=== PATIENT | female | born 1940 | race Caucasian/White ===

== ENCOUNTER 2017-09-05 11:36 | Emergency (ER) | payer MEDICARE ==
[~2017-09-05] VITALS: Ht 160 cm; Wt 55.0 kg
[2017-09-05 13:16] VITALS: BP 148/85
== END 2017-09-05 13:18 | disposition home or self-care (01) ==
LOC: ER 11:36
DX: S06.0X0A Concussion without loss of consciousness, initial encounter (principal); Z60.2 Problems related to living alone; W22.8XXA Striking against or struck by other objects, initial encounter; Y93.89 Activity, other specified; Y92.89 Other specified places as the place of occurrence of the external cause; Y99.8 Other external cause status
CPT/HCPCS: 99284

== ENCOUNTER 2021-10-17 13:20 | Emergency (ER) | payer MEDICARE ==
[~2021-10-17] VITALS: Ht 160 cm; Wt 58.0 kg
[2021-10-17 13:36] VITALS: BP 144/77
[2021-10-17 13:46] LABS: BASOPHILS # (AUTO) 0.1 X10'3 (0-0.2); BASOPHILS % (AUTO) 1.7 % (0-1); EOSINOPHILS # (AUTO) 0.3 X10'3 (0-0.9); EOSINOPHILS % (AUTO) 4.8 % (0-6); HEMATOCRIT 41.8 % (35.0-45.0); HEMOGLOBIN 13.9 g/dl (12.0-16.0); LYMPHOCYTES # (AUTO) 1.6 X10'3 (1.1-4.8); LYMPHOCYTES % (AUTO) 27.7 % (21-51); MEAN CORPUSCULAR HEMOGLOBIN 32.1 PG (27.0-31.0); MEAN CORPUSCULAR HGB CONC 33.2 g/dL (33.0-36.5); MEAN CORPUSCULAR VOLUME 96.7 FL (78-98); MONOCYTES # (AUTO) 0.6 X10'3 (0-0.9); MONOCYTES % (AUTO) 10.4 % (2-12); NEUTROPHILS # (AUTO) 3.3 X10'3 (1.8-7.7); NEUTROPHILS % (AUTO) 55.4 % (42-75); PLATELET COUNT 311 X10'3 (140-440); RED BLOOD COUNT 4.32 X10'6 (4.20-5.60); RED CELL DISTRIBUTION WIDTH 13.7 % (11.5-14.5)
[2021-10-17 14:00] LABS: ALANINE AMINOTRANSFERASE 94 U/L (12-78); ALBUMIN 3.7 G/DL (3.4-5.0); ALKALINE PHOSPHATASE 242 IU/L (46-116); ANION GAP 5 (8-16); ASPARTATE AMINO TRANSFERASE 54 U/L (10-37); BILIRUBIN,TOTAL 0.5 MG/DL (0.1-1.0); BLOOD UREA NITROGEN 16 MG/DL (7-18); BUN/CREATININE RATIO 16.2 (6.6-38.0); CALCIUM 9.1 MG/DL (8.5-10.1); CHLORIDE 103 MMOL/L (99-107); CREATININE 0.99 MG/DL (0.40-0.90); GLUCOSE 108 MG/DL (70-104); POTASSIUM 4.3 MMOL/L (3.5-5.1); SODIUM 135 MMOL/L (135-145); TOTAL CARBON DIOXIDE 27.2 MMOL/L (24-32); TOTAL PROTEIN 7.5 G/DL (6.4-8.2); eGFR 54 ML/MIN
== END 2021-10-17 16:50 | disposition home or self-care (01) ==
LOC: ER 13:20
DX: R07.89 Other chest pain (principal); R53.1 Weakness; I25.10 Atherosclerotic heart disease of native coronary artery without angina pectoris; I25.2 Old myocardial infarction; Z88.2 Allergy status to sulfonamides
CPT/HCPCS: 36415; 71045; 80053; 83880; 84484; 85025; 93005; 99285

== ENCOUNTER 2022-05-26 11:04 | Emergency (ER) | payer MEDICARE ==
[~2022-05-26] VITALS: Ht 160 cm; Wt 57.3 kg
[2022-05-26 11:29] VITALS: BP 152/76
[2022-05-26 12:00] LABS: CLARITY,URINE SLIGHTLY CLOUDY (Clear); COLOR,URINE YELLOW (Yellow); GLUCOSE, URINE NEGATIVE (Neg); KETONES,URINE NEGATIVE (Neg); LEUKOCYTE ESTERASE ,URINE NEGATIVE (Neg); NITRITES, URINE NEGATIVE (Neg); OCCULT BLOOD,URINE NEGATIVE (Neg); PH,URINE 6.5 (4.8-8.0); PROTEIN,URINE NEGATIVE (Neg); UROBILINOGEN,URINE 0.2 E.U/dL (0.2-1.0)
[2022-05-26 12:03] LABS: UA COLLECTION TYPE CLN CATCH MIDSTREAM
[2022-05-26 12:09] LABS: BACTERIA,URINE FEW /HPF (Neg); RBC,URINE 0-2 /HPF (0-2); SQUAMOUS EPITHELIAL CELL,UR MODERATE /LPF (FEW); TRANSITIONAL EPI CELLS,URINE FEW /HPF; WBC,URINE 0-4 /HPF (0-4)
[2022-05-26] MEDS ORDERED: TRAM50TA2 PO (16:42)
== END 2022-05-26 16:55 | disposition home or self-care (01) ==
LOC: ER 11:05
DX: M54.50 Low back pain, unspecified (principal); S32.009S Unspecified fracture of unspecified lumbar vertebra, sequela; N13.30 Unspecified hydronephrosis; M81.0 Age-related osteoporosis without current pathological fracture; G89.29 Other chronic pain; Z88.2 Allergy status to sulfonamides; X58.XXXS Exposure to other specified factors, sequela
CPT/HCPCS: 72131; 81001; 99284

== ENCOUNTER 2024-09-25 08:18 | Day surgery (SDC) | payer MEDICARE, OTHER ==
[2024-09-18 15:23] LABS: BASOPHILS # (AUTO) 0.1 X10'3 (0-0.2); BASOPHILS % (AUTO) 1.3 % (0-1); EOSINOPHILS # (AUTO) 0.3 X10'3 (0-0.9); EOSINOPHILS % (AUTO) 4.2 % (0-6); LYMPHOCYTES # (AUTO) 1.8 X10'3 (1.1-4.8); LYMPHOCYTES % (AUTO) 28.4 % (21-51); MEAN CORPUSCULAR HEMOGLOBIN 33.3 PG (27.0-31.0); MEAN CORPUSCULAR HGB CONC 33.8 g/dL (33.0-36.5); MEAN CORPUSCULAR VOLUME 98.6 FL (78-98); MEAN PLATELET VOLUME 8.6 FL (7.4-10.4); MONOCYTES # (AUTO) 0.7 X10'3 (0-0.9); MONOCYTES % (AUTO) 10.5 % (2-12); NEUTROPHILS # (AUTO) 3.6 X10'3 (1.8-7.7); NEUTROPHILS % (AUTO) 55.6 % (42-75); PRE OP HEMATOCRIT 43.7 % (35.0-45.0); PRE OP HEMOGLOBIN 14.8 g/dL (12.0-16.0); PRE OP PLATELET COUNT 254 X10'3 (140-440); PRE OP WHITE BLOOD COUNT 6.4 10'3 (4.8-10.8); RED BLOOD COUNT 4.44 X10'6 (4.20-5.60); RED CELL DISTRIBUTION WIDTH 13.3 % (11.5-14.5)
[2024-09-18 15:34] LABS: ALBUMIN 3.9 G/DL (3.4-5.0); ALKALINE PHOSPHATASE 94 IU/L (46-116); BLOOD UREA NITROGEN 16 MG/DL (7-18); BUN/CREATININE RATIO 15.7 (10.0-20.0); CALCIUM 9.1 MG/DL (8.5-10.1); CHLORIDE 100 MMOL/L (99-107); CREATININE 1.02 MG/DL (0.40-0.90); PRE OP ALT 25 U/L (30-65); PRE OP ANION GAP 5 (8-16); PRE OP AST 20 U/L (10-37); PRE OP BILIRUB, TOTAL 0.5 MG/DL (0.0-1.0); PRE OP GLUCOSE 112 MG/DL (70-104); PRE OP POTASSIUM 4.4 MMOL/L (3.4-5.1); PRE OP SODIUM 134 MMOL/L (135-145); TOTAL CARBON DIOXIDE 28.7 MMOL/L (24-32); TOTAL PROTEIN 7.8 G/DL (6.4-8.2); eGFR 51 ML/MIN
--- NOTE | 2024-09-18 15:44 | ELECTROCARDIOGRAPH REPORT ---
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 ZENAIDA Naylor Measurements Intervals [place] Rate: 70 P: 67 MT: 205 QRS: -49 QRSD: 96 T: 61 QT: 430 QTc: 464 Interpretive Statements Sinus rhythm Left axis deviation Borderline low voltage, extremity leads Electronically Signed On 09-18-2024 19:48:[address] ZENAIDA Naylor Please click the below link to view image of tracing.
[2024-09-25] VITALS (15 sets, daily range): BP systolic 122–135; BP diastolic 62–76; PULSE 63–83; RESP 11–17; TEMP 98.4; O2SAT 94–100
[~2024-09-25] VITALS: Ht 157.5 cm; Wt 58.2 kg
[2024-09-25] MEDS: ceFAZolin 2gm/dext,iso 50mL 50 ML IV ONE (05:30)
[~2024-09-25 08:18] MED LIST: ACET-1025 PO; ASPI81TA52 PO; BIOT5TAB PO; CHLOROPHYLL; CHOL20002 PO; DOCU-337 PO; FEXO-353 PO; FISH OIL PO; LACT-294 PO; LUTE1CAP5 PO; MAGN400T39 PO; MELA1TAB52 PO; NITR0.4T51 SL; PANT-47 PO; PAPAYA; PSYL0.4C2 PO; TYLENOL PM PO; [UNRECOGNIZED DRUG - OTHER] PO
[2024-09-25] MEDS: famotidine 20mg tablet PO ONE (09:34)
[2024-09-25] MEDS: ringers solution, lacted 1,000 ML IV SCH (09:35)
[2024-09-25] MEDS ORDERED: BUPIVAcaine 2.5mg/ml inj 50ml vial (contains preservative) ONE (09:52)
[2024-09-25] MEDS ORDERED: LIDOcaine 1% 30ml preserv. free vial ONE (09:52)
[2024-09-25] MEDS ORDERED: BUPIVACAINE liposomal/PF 13.3 MG/ML 10mL vial IM ONE (09:53)
[2024-09-25] MEDS ORDERED: fentaNYL/PF 50MCG/1 ML 2ML syringe ONE (10:59)
--- NOTE | 2024-09-25 11:02 | HISTORY AND PHYSICAL ---
History & Physical Providers to CC CC: АННА HARDY MD ~ History of Present Illness Reason for Admit\Complaint: Recurrent incisional hernia History of Present Illness Interval history and physical exam Patient is here today for elective repair of a recurrent incisional hernia. She was seen in the office and diagnosed with the above She reports no change in her past medical history since that visit (please see the previous history and physical exam for all pertinent details) She is scheduled for robotic assisted, laparoscopic mesh repair of this recurrent incisional hernia Allergies: Coded Allergies: Sulfa (Sulfonamide Antibiotics) (Verified Allergy, Unknown, 05/26/22) gluten (Verified Allergy, Unknown, stomach upset, 05/26/22) Uncoded Allergies: SULFRA (Allergy, Mild, 09/05/17) Home Medications Home Medications Active Reported Nitrostat SL* (Nitroglycerin) 0.4 Mg Tablet 1 Tab SL UD PRN 1st sign of attack; may repeat every 5 mins; if pain persists after 3 in 15 min, medical attention is recommended Biotin 5 Mg Tablet 1 Tab PO DAILY Ocuvite Lutein 25-5 mg Softgel (Lutein/Zeaxanthin) 25 Mg-5 Mg Capsule 1 Cap PO DAILY PROTONIX tablet (Pantoprazole Sodium) 40 Mg Tablet.dr 1 Tab PO DAILY PRN Aspirin EC (Aspirin) 81 Mg Tablet.dr 1 Tab PO DAILY [Fish Oil] 700 Mg PO BID Stool Softener (Docusate Sodium) 100 Mg Capsule 2 Cap PO HS PRN Tri* (Fexofenadine HCl) 60 Mg Tablet 1 Tab PO DAILY PRN Melatonin 1 Mg Tablet 1 Tab PO HS [Tylenol Pm] 1 Tab PO PRN PRN Tylenol Extra Strength (Acetaminophen) 500 Mg Tablet 2 Tab PO DAILY PRN [Papaya & Chlorophyll] Unknown Strength Unknown Dose Acidophilus Probiotic (Lactobacillus Acidophilus) 500 Million Cell Capsule 1 Cap PO DAILY [Dgl Licorice Extr] 500 Mg PO DAILY Vitamin D3 (Cholecalciferol (Vitamin D3)) 50 Mcg (2000 Unit) Capsule 1 Cap PO HS Magnesium (Magnesium Oxide) 400 Mg Magnesium Tablet 1 Tab PO HS NEEDED Metamucil (Psyllium Husk) 0.4 Gram Capsule 1 Cap PO DAILY ROS ROS Reviewed and negative with the exception of those found in the history of prese nt illness Exam General: 84-year-old female in no acute distress Chest: Lungs clear to auscultation bilaterally Cardiovascular: Regular rate and rhythm without murmurs Abdomen: Soft and nondistended Midline fascial defect just above the umbilicus that was about 4 cm in diameter Problems: (1) Recurrent incisional hernia Assessment & Plan: The risks, benefits, and alternatives to a robotic assisted, laparoscopic recurrent incisional hernia repair with mesh were discussed with the patient. Risks include, but are not limited to, bleeding, infection, injury to intra-abdominal structures, hernia recurrence and the need for additional surgery. Patient verbalized understanding and wishes to proceed with surgery. We will do so today as scheduled АННА HARDY MD September 25, 2024 11:02
[2024-09-25] MEDS ORDERED: LIDOcaine 2% (20mg/ml) 5ml vial ONE (11:12)
[2024-09-25] MEDS ORDERED: rocuronium 10mg/ml inj IV ONE (11:12)
[2024-09-25] MEDS ORDERED: midazolam 1 mg/ML 2ml injection ONE (11:12)
[2024-09-25] MEDS ORDERED: propofol inj 20 ML IV ONE (11:12)
[2024-09-25] MEDS ORDERED: labetalol 20mg/4ml (5mg/ml) syringe IV PRN (11:15)
[2024-09-25] MEDS ORDERED: meperidine/PF 25mg/ml syringe IV PRN (11:15)
[2024-09-25] MEDS ORDERED: acetaminophen 1,000mg/100ml IV 100 ML IV PRN (11:15)
[2024-09-25] MEDS ORDERED: morphine 4 MG/ML inj SYRINge IV PRN (11:15)
[2024-09-25] MEDS ORDERED: HYDROmorphone/PF 0.2 MG/ML SYRINGE IV PRN ×2 (11:15)
[2024-09-25] MEDS ORDERED: proCHLORperazine 10 MG/2 ml inj IV PRN (11:15)
[2024-09-25] MEDS ORDERED: ondansetron/PF 4mg/2ml inj IV PRN (11:15)
[2024-09-25] MEDS ORDERED: hydrALAZINE 20mg/ml inj. IV PRN (11:15)
[2024-09-25] MEDS ORDERED: ringers solution, lacted 1,000 ML IV SCH (11:15)
[2024-09-25] MEDS ORDERED: ondansetron/PF 4mg/2ml inj ONE (11:26)
[2024-09-25] MEDS ORDERED: dexamethasone sod phosphate 4mg/ml inj. ONE (11:26)
[2024-09-25] MEDS ORDERED: bacitracin 15gm ointment TP ONE (12:18)
[2024-09-25] MEDS ORDERED: glycopyrrolate 0.2mg/ml inj ONE (12:36)
[2024-09-25] MEDS ORDERED: neostigmine methylsulfate 1 MG/ML 10ml vial ONE (12:36)
--- NOTE | 2024-09-25 13:10 | OPERATIVE REPORT ---
Operative Report Providers to CC CC: ERON HARDY MD ~ Date of Procedure: September 25, 2024 Pre-Operative Diagnosis: Recurrent incisional Post-Operative Diagnosis Recurrent, 4 cm incisional hernia Procedure Performed Robotic assisted, laparoscopic recurrent, 4 cm incisional hernia repair with mesh Bilateral transversus abdominis plane nerve blocks injection using 266 mg of Exparel Surgeon: Eron Hardy MD FACS Head Stock Operator None Anesthesiologist: Ghulam Cole Type of Anesthesia: General Findings: Inferior recurrence of a previously mesh repaired midline fascial defect Wound Class I Complications None Prosthetics\Implants used: 12 cm diameter coated polyester mesh Estimated Blood Loss: Minimal Specimen Removed: Previous hernia mesh removed Description of Procedure: Patient was brought to the operating room and identified by the nursing staff and the attending physician. Patient was placed supine and a general anesthesia was induced. Preoperative antibiotics were given. The abdomen was prepped and draped in the standard sterile fashion. Through a left subcostal stab incision the abdomen was accessed with a Veress needle technique. Abdomen was insufflated without incident. The incision was lengthened to accommodate a 12 mm optical trocar and the abdomen was entered under laparoscopic visualization. The abdomen was surveyed laparoscopically. There were adhesions to the anterior abdominal wall and an obvious hernia recurrence inferior to a previously placed hernia mesh. In the left lower quadrant, there was previous preperitoneal repair of the hernia that prohibitive placement of for, so ports were placed on the right lateral abdomen under laparoscopic visualization. Three ports were placed in the superior mid and right lateral abdomen. The [id number] robotic arm was docked to the patient and instruments were guided into the abdomen under laparoscopic visualization. About 15 minutes spent mobilizing omentum that was adherent to the previously placed hernia mesh and completely reducing these adhesions. Falciform ligament was mobilized off the superior edge of the hernia mesh and mobilized towards the upper abdomen. The previously placed mesh was then mobilized away from the anterior abdominal wall. There was a recurrence along the inferior margin extending in between hernia mesh and anterior abdominal wall. Once freed, the hernia mesh was passed laparoscopically and retrieved through the 12 mm port site. There was a 4 cm fascial defect. Hernia sac was mobilized out of the defect, excised at the level of the fascia and passed through the 12 mm port and discarded. Fascial defect(s) were then reapproximated with running, absorbable, 0V lock suture. Good fascial apposition was obtained without significant tension. A coated polyester mesh was then fixed to the anterior abdominal wall with running, absorbable, 2/0, V lock suture. Mesh laid without wrinkles or folds. The mesh measured 12 cm in diameter. The da Carissa instruments were then removed and the robot undocked from the patient. Bilateral transversus abdominis plane nerve blocks by injection were then placed under laparoscopic visualization using a combination of Marcaine and 266 mg of Exparel. The left subcostal trocar was removed and its fascia closed percutaneously with 0 Vicryl suture under laparoscopic visualization. Remaining trochars were removed after the abdomen was allowed to deflate. Skin was closed at all sites with 4-0 Monocryl sutures and dressed with sterile dressings. Patient was awakened and taken to the postanesthesia care unit in stable condition. Counts repoted as correct: Yes ERON HARDY MD September 25, 2024 13:10
[2024-09-25] MEDS: morphine 2 MG/ML inj. syringe IV PRN (14:29)
[2024-09-25] MEDS: oxyCODONE/APAP 5-325mg tablet PO PRN (16:11)
== END 2024-09-25 16:12 | disposition home or self-care (01) ==
LOC: PAS 08:18
PROVIDERS: ATTEND Surgery
DX: K43.2 Incisional hernia without obstruction or gangrene (principal); I25.2 Old myocardial infarction; Z88.2 Allergy status to sulfonamides; H54.8 Legal blindness, as defined in USA; Z85.828 Personal history of other malignant neoplasm of skin; Z79.899 Other long term (current) drug therapy; Z79.01 Long term (current) use of anticoagulants; Z98.890 Other specified postprocedural states; Z87.442 Personal history of urinary calculi
CPT/HCPCS: 36415; 49615; 64488; 80053; 82948; 85025; 93005; A4215; A4618; C1758; C1781; J0666; J1100; J2003; J2250; J2270; J2405; J2704; J2710; J3010; J3490; J7030; J7120; Z7506; Z7508; Z7512; Z7610